=== PATIENT | male | born 2000 | race Caucasian/White ===

== ENCOUNTER 2022-01-10 12:47 | Emergency (ER) | payer BC ==
[2022-01-10 12:59] VITALS: BP 141/74; PULSE 77; RESP 18; TEMP 98.2; BMI 23.1
== END 2022-01-10 14:58 | disposition home or self-care (01) ==
LOC: JERFT 12:47 → JER 12:47 → JERFT 14:58
DX: M25.512 Pain in left shoulder (principal); S50.812A Abrasion of left forearm, initial encounter; S00.81XA Abrasion of other part of head, initial encounter; V00.841A Fall from standing electric scooter, initial encounter
CPT/HCPCS: 73030-TC-LT-FY; 99283-25